=== PATIENT | female | born 1965 | race Caucasian/White ===

== ENCOUNTER 2016-04-21 22:49 | Observation (INO) ==
[2016-04-22] MEDS ORDERED: *HR* Enoxaparin 150 MG/ML SYRINGE SQ STA (01:48)
[2016-04-22] MEDS ORDERED: Naloxone 0.4 MG/ML INJ IVP PRN (01:50)
[2016-04-22] MEDS ORDERED: *HR* Morphine 2 MG/ML SYRINGE IVP PRN (01:50)
[2016-04-22] MEDS ORDERED: Acetaminophen 325 MG TABLET PO PRN (01:50)
--- NOTE | 2016-04-22 01:58 | Internal Med History&Physical ---
Date of Encounter: 04/22/16 Time of Encounter: 01:53 Assessment and Plan (1) Chest pain Current visit: No Status: Acute 1. I have a high index of suspicion for PE given her use of OCP's; family history of DVT/PE; and sinus tachycardia on EKG. 2. I will give her a one time dose of Lovenox right now of 1 mg/kg empirically. 3. I will order BLE venous Dopplers to be done in the morning. 4. I will hydrate her with IVF in anticipation of repeating CTA chest later today. 5. I will discuss with daytime hospitalist and impress upon him/her my concerns for PE. I recommend repeat imaging (either CTA chest or V/Q) later today to R/O PE. I favor CTA chest as this is a better test. 6. May need to continue Lovenox at 1 mg/kg/dose if PE not ruled out by 1 pm. 7. Will cycle troponins and EKG's. 8. Will order ECHO. 9. Patient will need cardiac work-up after PE formally ruled out. This can be done as outpatient if necessary. Qualifiers: Chest pain type: pleurodynia Qualified Code(s): R07.81 - Pleurodynia (2) Hypertension Current visit: Yes Status: Chronic 1. Will monitor BP and treat as necessary. 2. Hold home med due to diuretic effect. May need substitute BP meds while in hospital. Qualifiers: Hypertension type: essential hypertension Qualified Code(s): I10 - Essential (primary) hypertension (3) DVT prophylaxis Current visit: Yes Status: Acute 1. Lovenox given one time at 1 mg/kg. 2. Will either need to continue Lovenox as above or change to low dose prophylaxis dose once PE ruled out or in. To be determined by daytime hospitalist later today. Internal Medicine - H&P: HPI Chief complaint: chest pain Admitted From: Hospital to Hospital Transfer Plans for Post Hospital Care: Home History of present illness: Ms. Gallagher is a 51 year old female who presents in transfer from [facility] emergency department for concerns of chest pain. Workup there was negative, but she did have an elevated d-dimer. This prompted a CT angiogram of the chest which was negative for large PE, but it was a suboptimal test due to lack of appropriate contrast injection. I was contacted by ER staff at [place] and I accepted the patient in transfer. At that time, ER staff was concerned this is more likely cardiac in nature. However, during my assessment of the patient, I am more concerned about pulmonary embolus than I am about a cardiac cause of chest pain. She describes pleuritic-type chest pain along with palpitations. Furthermore, she is on oral contraceptives for dysfunctional uterine bleeding. Additionally, she has 2 siblings, both of whom have had DVT and pulmonary emboli. She does not smoke. She denies any prolonged travel. She denies any calf pain or tenderness. She denies any anginal type symptoms prior to today's events. Chest pain was pressure in nature initially, but later appeared to be pleuritic with some dyspnea. It was not relieved by rest or exacerbated by activity. She denies any hemoptysis, cough, or any fevers. EKG shows a sinus tachycardia. Past Med Surg Social Fam HX - Past Medical History Attestation: Yes The following information was validated with the patient. Source: patient, old records reviewed Medical history: hypertension Psychiatric history: no psych history - Past Surgical History Surgical History: other (D&C) - Social History Smoking Status: Never smoker Smokeless Tobacco Status: No Alcohol use: none Drug use: none Occupational status: employed Current living situation: Home, With Family Activity Level: Independent ambulation Recent Out of Country Travel Within the Last 8 Weeks: No - Family History Brother Living Status: Still Living Hx Family Cardiac Disorders: Yes ([address] Bypass at 53) Hx Family Medical Disorders: Yes (+ DVT/PE) Sister Living Status: Still Living Hx Family Cardiac Disorders: Yes (heart attack at 52 with Triple Bypass) Hx Family Medical Disorders: Yes (+ DVT/PE) Mother Living Status: Age at : 53 Cause of : Brain anyerism Hx Family Cardiac Disorders: Yes (HTN) Father Living Status: Age at : 69 Cause of : Heart attack Hx Family Cardiac Disorders: Yes (HTN) Internal Medicine - H&P: Meds Lisinopril-HCTZ 10-12.5 [Prinzide 10-12.5] 1 each PO DAILY 04/21/16 [History] Aspirin [Lo-Dose Aspirin EC] 81 mg PO DAILY 04/22/16 [History] Norethindrone AC-Eth Estradiol [Microgestin 21 1-20 Tablet] 1 each PO DAILY [History] Allergies No Known Allergies Allergy (Verified 11/06/14 14:16) - Constitutional Constitutional: no chills, no fever(s) - EENT Eyes: no blurry vision, no change in vision Ears: no ear pain, no tinnitus Nose, mouth and throat: no nasal congestion, no nasal discharge, no sinus pain, no sinus pressure, no sore throat - Cardiovascular Cardiovascular ROS IM: chest pain, dyspnea, palpitations, no edema, no irregular heart rhythm, no lightheadedness, no syncope - Respiratory Respiratory: dyspnea, no cough, no hemoptysis, no wheezing, no chest congestion , no excessive phlegm production, no change in phlegm color - Gastrointestinal Gastrointestinal: heartburn, no diarrhea, no hematemesis, no hematochezia, no melena, no nausea, no vomiting - Genitourinary Genitourinary: no dysuria, no flank pain, no hematuria - Musculoskeletal Musculoskeletal ROS IM: no arthralgias, no back pain, no muscle weakness, no myalgias - Integumentary Integumentary IM: no rash, no jaundice - Neurological Neurological ROS: no dizziness, no focal weakness, no headache(s) - Psychiatric Psychiatric: anxiety, no depression - Endocrine Endocrine IM: no polydipsia, no polyuria - Allergic/Immunologic Allergic/Immunologic: no wheezing, no GI upset with certain foods - Constitutional Vitals: Temp Pulse Resp BP Pulse Ox 98.6 F 76 17 121/70 96 04/22/16 01:01 04/22/16 01:01 04/22/16 01:01 04/22/16 01:01 04/22/16 01:01 General appearance: Present: cooperative, A&O X 3, pleasant, obese, answers questions appropriately Exam: mildly anxious - Head Head exam: Present: atraumatic, normal inspection - Expanded Head Exam Head exam expanded: Absent: abrasion, general tenderness - Eye Eye exam: Present: EOMI, normal appearance, PERRL. Absent: scleral icterus Pupils: Present: normal accommodation - ENT ENT exam: Present: normal exam, normal oropharynx - Neck Neck exam general surgery: Present: full ROM, supple. Absent: lymphadenopathy, tenderness - Expanded Neck Exam Neck exam: Absent: carotid bruit - Respiratory Respiratory exam: Present: CTAB. Absent: chest wall tenderness, rales, respiratory distress, rhonchi, wheezes - Cardiovascular Cardiovascular exam: Present: RRR, +S1, +S2. Absent: diastolic murmur, systolic murmur - GI/Abdominal GI/Abdominal exam: Present: normal bowel sounds, soft. Absent: guarding, hepatomegaly, rebound, splenomegaly, tenderness - Extremities Exam Extremities exam: Present: warm. Absent: calf tenderness, joint swelling, pedal edema, tenderness - Back Exam Back exam: Present: normal inspection. Absent: CVA tenderness (L), CVA tenderness (R) - Neurological Exam Neurological exam: Present: alert, CN II-XII intact, oriented X3, no focal deficits - Psychiatric Psychiatric exam: Present: anxious. Absent: depressed - Skin Skin exam: Present: dry, warm. Absent: rash Internal Med - H&P Results - Labs Labs: WBC: 10.2 Hgb: 15.5 Hct: 44.5 Plt: 306 D-Dimer: 822 Sodium 136 Potassium 3.5 Chloride 102 CO2 23 BUN 10 Creatinine 0.73 Troponin 0.01 - EKG Data -: EKG Interpreted by Myself - EKG Data Prior EKG available for review: no EKG comments: 04/22/16 02:03 Sinus tachycardia - Diagnostic Studies CT scan - chest Additional comments: Report reviewed: sub-optimal study due to lack of adequate/appropriate contrast enhancement of pulmonary arteries - VTE Reasons for not Prescribing Prophylaxis: Not indicated-Anticoagulated or INR therapeutic
[2016-04-22] MEDS ORDERED: 0.9 % Sodium Chloride w KCl 20 MEQ/1,000 ML MLS IVC SCH (02:00)
[2016-04-22 05:40] LABS: Basophils % 0.3 %; Eosinophils # 0.2 K/mcL (0.0-0.6); Eosinophils % 2.4 %; Hematocrit 39.4 % (35.3-44.9); Hemoglobin 13.5 g/dL (11.5-15.4); Immature Granulocytes % 0.3 % (0-4); Lymphocytes # 2.5 K/mcL (0.6-4.6); Lymphocytes % 26.7 %; Mean Corpuscular HGB Conc 34.3 g/dL (31.6-35.5); Mean Corpuscular Hemoglobin 30.3 pg (28.0-33.3); Mean Corpuscular Volume 88.3 fL (83.0-100.0); Mean Platelet Volume 10.5 fL (9.4-12.4); Monocytes # 0.7 K/mcL (0.0-1.3); Neutrophils # 5.9 K/mcL (1.6-8.9); Platelet Count 290 K/mcL (140-400); Red Blood Count 4.46 M/mcL (3.82-4.97); Red Cell Distribution Width 12.1 % (11.5-14.5); Segmented Neutrophils % 63.3 %
[2016-04-22 06:02] LABS: BUN/Creatinine Ratio 13 (6-26); Blood Urea Nitrogen 9 mg/dL (7-20); Calcium 8.2 mg/dL (8.6-10.8); Carbon Dioxide 22 mEq/L (19-29); Chloride 105 mEq/L (98-109); Chol/HDL Ratio 5.1 (0-4.9); Cholesterol 182 mg/dL (< 200); Glucose 83 mg/dL (70-99); HDL Cholesterol 36 mg/dL (40-59); LDL Cholesterol,Calculated 121 mg/dL (0-99); Magnesium 1.5 mg/dL (1.6-2.6); Osmolality,Calculated 286 (280-300); Potassium 3.2 mEq/L (3.5-4.5); Sodium 139 mEq/L (136-145); Triglycerides 124 mg/dL (< 150); eGFR For African Americans > 60 (> 60); eGFR For Non-African Americans > 60 (> 60)
[2016-04-22] MEDS ORDERED: Aspirin Enteric Coated 81 MG Tablet PO SCH (09:00)
--- NOTE | 2016-04-22 11:40 | ECHO - Doppler Report ---
Echocardiogram Name: Ariana Gallagher Date of Study: 04/22/2016 Date: 1965 Ht: 65.0 in Medical Record#: [id number] Age: 51 Wt: 280.0 lb Gender: Female BSA: 2.28 Order #: [id number] Location: [facility] Room #: [id number] Reading Physician: Jordy Santana DO, ELIZABETH, LAURA MAHAN Utilization Review Nurse: Alka Sy Ordering Physician: Raul Foreman MD Primary Physician: Madhu Cox MD Indications: Chest pain r/o ACS Impressions: Technically sub-optimal due to poor echocardiographic windows. LVEF 50-55%. Normal LV chamber size, wall thickness and function. Mild left ventricular diastolic dysfunction. Normal right ventricular structure and function. No evidence of pulmonary hypertension. No significant valvular dysfunction. Left Ventricular Wall Motion: Rest Echo Findings All wall segments showed normal motion. Findings: Study Quality * Technically sub-optimal due to poor echocardiographic windows. ECG Findings * Normal sinus rhythm. Left Ventricle * LVEF 50-55%. * Normal LV chamber size, wall thickness and function. * Mild left ventricular diastolic dysfunction. Right Ventricle * Normal right ventricular structure and function. Left Atrium * Mildly dilated left atrium. Right Atrium * Normal right atrial size. Interatrial Septum * Interatrial septum not well evaluated. Aortic Valve * Trileaflet aortic valve with normal function. * No aortic stenosis. * No aortic regurgitation. Mitral Valve * Normal mitral valve structure and function. * No mitral regurgitation. * No mitral stenosis. Tricuspid Valve * Normal tricuspid valve structure and function. * Trace tricuspid regurgitation. * No evidence of pulmonary hypertension. Pulmonic Valve * Pulmonic valve is not well visualized. Aorta * Normally sized aortic root. Pericardium * The pericardium appears normal. IVC * The IVC is not well evaluated. Pulmonary Artery * Pulmonary artery not well visualized. History Hypertension Family History of CAD Measurements: BP: 137/ 80 2D Normal Values RVIDd: 2.60 cm <2.7 cm IVSd: .90 cm 0.6 - 1.0 cm LVIDd: 4.90 cm 3.7 - 5.6 cm LVPWd: 1.10 cm 0.6 - 1.1 cm LVIDs: 3.50 cm 1.5 - 3.6 cm AO: 2.70 cm < 4.0 cm LA: 3.60 cm 2.0 - 4.0cm %FS: 28.60 cm >25 % LA volume: 57 Mitral Valve Peak E:.97 m/sec Peak A:1.23 m/sec E/A Ratio:0.8 Peak E' Lat Darnell:14.9 cm/s Peak E' Med Darnell:9.55 cm/s E/E' Lat Ratio:6.5 E/E' Med Ratio:10.1 Tricuspid Valve TV Regurg Peak Grad: 18.00mmHg TV Regurg Peak Darnell: 2.13m/sec Updated by Jordy Santana DO, ELIZABETH, NEGRITO, LAURA on 04/22/2016 11:34:12 AM electronically signed on 04/22/2016 11:34:29 AM with status of Final Wall Motion Terry: 1=Normal, 2=Hypokinesis, 3=Akinesis, 4=Dyskinesis, 5=Aneurysmal, 6=Hyperkinetic, X=Not Visualized (Blank)=Missing
[2016-04-22] MEDS ORDERED: *HR* Enoxaparin 150 MG/ML SYRINGE SQ SCH (13:00)
[2016-04-22 16:56] VITALS: BP 115/69
--- NOTE | 2016-04-22 17:07 | Discharge Summary ---
Date of Encounter: 04/22/16 Time of Encounter: 12:00 - Discharge Diagnosis (1) Chest pain Priority: Primary Status: Acute Comments: Pt was sent her from [place] ED for suspected PE and chest pain. Pt has been having chest pain and palpitations since yesterday. She reports feeling palpitations and tachycardia. Pain is shooting and in L upper chest, lasting 3- 4 seconds. She approximates that it happened approx 20 times yesterday and is happening sometimes here today still. Pt reports SOB and some nausea with chest pain. Pt had elevated D-dimer at [place] and suboptimal CTA at [place]. Pt was transferred here, and due to her risk factors of family history, OCP, and obesity, we did another CTA that was negative for PE. Pt also had severino LE dopplers which were negative for DVT/SVT. Troponins were negative x3 and echo showed LVEF 50-55%, normal LV chanber size, wall thickness and fucntion, Mild LV diastolic dysfunction, Normal RV structure and function, no evidence of pulmonary htn, and no significant valvualr dysfunction. Pt also got potassium replacement which brought level to WNL> Continue home medications Add Metoprolol 12.5mg po for palpitations Qualifiers: Chest pain type: unspecified Qualified Code(s): R07.9 - Chest pain, unspecified (2) Heart palpitations Priority: Secondary Status: Acute Comments: Pt states that she feels palpitations frequently which make her SOB. She also has sharp, shooting L chest pain lasting seconds with the palpitations. She did have some nausea yesterday with the palpitations. Holter monitor Metroprolol (3) Hypertension Priority: Secondary Status: Chronic Comments: Continue home medications Qualifiers: Hypertension type: essential hypertension Qualified Code(s): I10 - Essential (primary) hypertension (4) Hypokalemia Priority: Secondary Status: Resolved Comments: K+ 3.2 on arrival, was given fluids with potassium. Recheck prior to discharge 4.0. (5) Hypomagnesemia Priority: Secondary Status: Resolved Comments: Magnesium 1.5 on arrival, redraw prior to discharge 2.0. (6) DVT prophylaxis Priority: Secondary Status: Acute Comments: Lovenox 1x dose and maintenance dose due to rule out DVT/PE on admission. - Discharge Medications Prescriptions: Metoprolol [Lopressor] 12.5 mg PO BID #45 tablet Home Medications: Lisinopril-HCTZ 10-12.5 [Prinzide 10-12.5] 1 tab PO DAILY 04/21/16 [History] Aspirin [Lo-Dose Aspirin EC] 81 mg PO DAILY 04/22/16 [History] Calcium Carbonate [Tums] 1,000 mg PO QID tab.chew 04/22/16 [Rx] Metoprolol [Lopressor] 12.5 mg PO BID #45 tablet 04/22/16 [Rx] Norethindrone AC-Eth Estradiol [Microgestin 21 1-20 Tablet] 1 tab PO DAILY 04/22 [History] Allergies/Adverse Reactions: Allergies No Known Allergies Allergy (Verified 11/06/14 14:16) Procedures/tests Complete & Pending: Procedures Performed prior 72 hours Category Date Time Status CT angio chest [CT] Routine Cat Scan 04/22/16 09:15 Completed ECG 12 lead ECG [ECG] AM 0600 Y 04/22/16 06:00 Ordered EV echocardiogram Routine Y 04/22/16 01:50 Completed Venous Doppler [EV venous imaging LE BI] Routine Y 04/22/16 01:50 Completed Date of admission: 04/22/16 00:36 Primary care physician: Madhu Cox MD Discharging clinician: Ariana Huitron Anticipated date of discharge: 04/22/16 - Patient Status Disposition: Home, Self-Care Condition: Good Functional capacity at discharge: independent ambulation Overall status at discharge: patient is progressing back to baseline - Discharge Instructions Follow Up With: Madhu Cox MD [Primary Care Provider] - Additional Instructions: Start Metroprolol 12.5mg po bid. Please make sure that you watch for increased dizziness. If you are feeling dizzy, take your blood pressure and pulse and if it is low, stop taking the metoprolol Make sure that you are drinking plenty of fluids Take some extra calcium in your diet or supplementation. Get your holter monitor done and results to Dr Gan Follow up with cardiology as needed. Return to ED if you have any other problems or concerns or if your chest pain returns. - Diet and Activity Activity: increase activity as tolerated Diet: advance to your usual diet Hospital course: Ms. Gallagher is a 51 year old female who began feeling palpitations, having chest pain and some nausea yesterday. Pt had intermittent L sharp chest pain that lasted only seconds, but occurred about 20 times throughout the day. Pt went to [place] ED where she had an elevated D-dimer and a suboptimal CTA. She was sent here due to suspected PE or DVT. BLE dopplers were negative, as was echo, repeat CTA, and serial troponins. Pt is still having intermittent chest pain and pressure. Pain is not reproduceable with palpation, deep inspiration, or movement. Will try metoprolol. Potassium given and pt also will go home with instructions to increase calcium intake and take tums and a prescription for mag-ox for 7 days. Pt is stable for discharge. 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 - Time Spent with Patient Total time spent providing and/or coordinating discharge services: - Constitutional Vitals: Temp Pulse Resp BP Pulse Ox 97.9 F 84 20 115/69 95 04/22/16 16:48 04/22/16 16:48 04/22/16 16:48 04/22/16 16:48 04/22/16 16:48 General appearance: Present: cooperative, A&O X 3, pleasant, obese, answers questions appropriately - Head Head exam: Present: atraumatic, normal inspection - Eye Eye exam: Present: normal appearance, conjuntiva pink - ENT ENT exam: Present: mucous membranes moist, normal exam - Neck Neck exam general surgery: Present: normal inspection. Absent: lymphadenopathy , tenderness - Respiratory Respiratory exam: Present: CTAB. Absent: chest wall tenderness, decreased breath sounds, rales, respiratory distress, rhonchi, stridor, wheezes, tachypnea - Cardiovascular Cardiovascular exam: Present: RRR, +S1, +S2. Absent: diastolic murmur, distant heart sounds, systolic murmur - Expanded Cardiovascular Exam Peripheral pulses: 2+: Dorsalis Pedis (L) PM, Dorsalis Pedis (R) PM - GI/Abdominal GI/Abdominal exam: Present: normal bowel sounds, soft. Absent: tenderness - Extremities Exam Extremities exam: Present: full ROM, normal capillary refill, normal inspection , pedal edema, warm, radial pulses palpable and symetrical. Absent: calf tenderness, joint swelling, mottling, tenderness Additional comments: Pt has +1 non-pitting edema to BLE. - Neurological Exam Neurological exam: Present: alert, oriented X3, strengths equal and symetr throughout. Absent: facial droop, speech deficit - VTE Reasons for not Prescribing Prophylaxis: Not indicated-Anticoagulated or INR therapeutic
--- NOTE | 2016-04-24 16:48 | Venous Imaging Report ---
LE Venous Duplex Patient Name:Ariana Gallagher Order Number:[id number] Procedure Date:04/22/2016 Date:1965Age:51 yrs Gender:Female Location:[facility] Room #: [id number] Patient Safety Sitter:Alka Sy Referring MD:Raul Foreman MD armor senior sergeant:Madhu Cox MD Reading MD:Theodore Blanchard MD Primary Indications:r/o DVT Secondary Indications: Impressions: Bilateral lower extremity: normal superficial and deep exam. Findings Venous Duplex Results: Right: The right peroneal vein was not well visualized. Prior Study: No prior study available for comparison. Lower Extremity Venous Duplex Side Vein Compress Spontaneous Flow Augment Diameter (cm) Depth (cm) Right Distal Iliac Normal Yes Phasic Yes Right Common Femoral Normal Yes Phasic Yes Right Superficial Femoral Normal Yes Phasic Yes Right Popliteal Normal Yes Phasic Yes Right Posterior Tibial Normal Yes Phasic Yes Right Peroneal Normal Yes Phasic Yes Right Saphenofemoral [place] Normal Yes Phasic Yes Right Great Saphenous Normal Yes Phasic Yes Right Lesser Saphenous Normal Yes Phasic Yes Left Distal Iliac Normal Yes Phasic Yes Left Common Femoral Normal Yes Phasic Yes Left Superficial Femoral Normal Yes Phasic Yes Left Popliteal Normal Yes Phasic Yes Left Posterior Tibial Normal Yes Phasic Yes Left Peroneal Normal Yes Phasic Yes Left Saphenofemoral [place] Normal Yes Phasic Yes Left Great Saphenous Normal Yes Phasic Yes Left Lesser Saphenous Normal yes Phasic yes Updated by Theodore Blanchard MD on 04/24/2016 4:41:55 PM electronically signed on 04/24/2016 4:42:04 PM with status of Final
== END 2016-04-22 18:15 | disposition home or self-care (01) ==
LOC: 3BNU
PROVIDERS: ADMIT Pediatrics; ATTEND Registered Nurse